=== PATIENT | female | born 1970 ===

== ENCOUNTER 2021-09-30 07:31 | Outpatient (CLI) | payer OTHER ==
[~2021-09-30 07:31] MED LIST: TORADOL10 MG PO
== END 2021-09-30 07:49 | disposition home or self-care (01) ==
LOC: MRI 07:31
PROVIDERS: ATTEND Orthopaedic Surgery
DX: M75.122 Complete rotator cuff tear or rupture of left shoulder, not specified as traumatic (principal); M25.512 Pain in left shoulder
CPT/HCPCS: 73218